=== PATIENT | male | born 1955 | race African-American/Black ===

== ENCOUNTER 2016-12-30 08:40 | Day surgery (SDC) | payer OTHER ==
[2016-12-26 13:45] VITALS: BMI 44.9
[2016-12-30 11:04] LABS: Prothrombin Time 13.8 SEC (12.0-14.7)
[2016-12-30] MEDS ORDERED: Fentanyl 100 MCG/2 ML VIAL ONE (13:07)
[2016-12-30] MEDS ORDERED: Midazolam HCl 2 mg/2 ml Vial ONE ×2 (13:07→13:48)
[2016-12-30] MEDS ORDERED: Bupivacaine PF 0.5% 30 ML VIAL ONE (13:24)
[2016-12-30] MEDS ORDERED: Bacitracin Zinc Ointment 30 gm TUBE ONE (13:24)
[2016-12-30] MEDS ORDERED: Betamet Acet/Betamet Na Ph 30 MG/5 ML VIAL ONE (13:24)
[2016-12-30] MEDS ORDERED: Propofol 500 MG/50 ML VIAL ONE (13:48)
[2016-12-30] MEDS ORDERED: Propofol 200 MG/20 ML VIAL ONE (14:15)
[2016-12-30] MEDS ORDERED: Lidocaine 1% PF 5 ML VIAL ONE (14:15)
[2016-12-30] MEDS ORDERED: Thrombin 5000 UNITS/5 ML VIAL ONE ×3 (14:34→15:40)
[2016-12-30] MEDS ORDERED: Diprivan 20 ML ONE ×2 (15:37→15:38)
[2016-12-30] MEDS ORDERED: Ketorolac Tromethamine 30 MG/ML VIAL ONE (16:50)
--- NOTE | 2016-12-30 17:30 | RAD ---
EXAM: INTRAOPERATIVE FLUOROSCOPY 12/30/16 COMPARISON: None. FINDINGS: Three fluoroscopic views are submitted for interpretation and demonstrate a metallic surgical instru ment at the level of the olecranon, specifically at the level of the olecranon osteophyte. IMPRESSION: Fluoroscopy as above. POS: NARGIS
--- NOTE | 2016-12-31 09:28 | OP ---
DATE OF PROCEDURE: 12/30/2016 PREOPERATIVE DIAGNOSES: 1. Anticoagulation with Coumadin and Lovenox. 2. Large olecranon bursa. PROCEDURES PERFORMED: 1. Radical olecranon bursectomy. 2. Triceps tendon partial repair. 3. Olecranon osteophyte excision. 4. C-arm supervision. SURGEON: Kei Sanders MD. COMPLICATIONS: None. TOURNIQUET TIME: 72 minutes. ESTIMATED BLOOD LOSS: 60 mL. AUGMENTATION AT THE END OF PROCEDURE: We used thrombin-soaked Gelfoam, 4 vials of thrombin, and 4 G elfoams, and placed him in the splint with bulky dressing. INDICATION: The patient with persistent olecranon bursitis, with large osteophyte almost 1 cm long on radiographs. POSTOPERATIVE FINDINGS: A small hole in the triceps tendon approximately 5-6 mm long, which we repa ired with the osteophyte was protruding. DESCRIPTION OF PROCEDURE: After successful general LMA technique, limb was prepped and draped. Juan eout was done appropriately. A zigzag incision was outlined with no incision over the olecranon tip itself. After prepped and draped and appropriate timeout, sterile tourniquet was applied. Limb wa s exsanguinated, tourniquet inflated to 325 mmHg pressure. We then made a zigzag incision carried t hrough skin, subcutaneous tissue the whole way, performed electrocautery on anything that looked lik e it may bleed, especially as we knew the patient had a bleeding diathesis based on anticoagul ation for all the systemic problems. Once we did this, there was a very thick olecranon bursa with a fluid-filled, so it was excised all mass and was approximately 12 cm long and a 4.5 cm wide. Once this was done, we found on the C-arm the osteophyte and we easily saw and made a hole through the t riceps, follow this hole to the osteophyte, excised using a combination of a mallet and osteotome an d a rongeur. At this point, this left a 3 mm wide x 7 mm hole over the triceps, which was repaired primarily using #1 Ethibond suture. Tourniquet was deflated and we obtained hemostasis over a 15 minute using cold normal saline soaked lap sponges followed by pressure followed by cautery. Once we achieved relative hemostasis, we then placed thrombin-soaked Gelfoam throughout the entire wound to include the undersurface of the skin as well as the bone and the triceps surface. We then observed this for 5-6 minutes. There was no b leeding after this, and so we then closed the wound in multiple layers using a 3-0 running Monocryl undyed and a 3-0 nylon interrupted mattress pattern on the skin. Placed a bulky dressing to include ABD, and a long arm splint and the patient left the operating room without evidence of anesthetic o r operative complication.
== END 2016-12-30 18:30 | disposition home or self-care (01) ==
LOC: SDC 08:40
PROVIDERS: ATTEND Orthopaedic Surgery Hand Surgery
PROC: 0MT40ZZ Resection of Left Elbow Bursa and Ligament, Open Approach (ICD-10-PCS; principal; 2016-12-30)
PROC: 0PBL0ZZ Excision of Left Ulna, Open Approach (ICD-10-PCS; principal; 2016-12-30)
DX: M70.22 Olecranon bursitis, left elbow (principal); M19.022 Primary osteoarthritis, left elbow; I10 Essential (primary) hypertension; I25.10 Atherosclerotic heart disease of native coronary artery without angina pectoris; E11.9 Type 2 diabetes mellitus without complications; E78.5 Hyperlipidemia, unspecified; F43.10 Post-traumatic stress disorder, unspecified; G47.33 Obstructive sleep apnea (adult) (pediatric); N52.9 Male erectile dysfunction, unspecified; F32.9 Major depressive disorder, single episode, unspecified; E66.01 Morbid (severe) obesity due to excess calories; Z68.41 Body mass index [BMI] 40.0-44.9, adult; Z88.8 Allergy status to other drugs, medicaments and biological substances; Z79.01 Long term (current) use of anticoagulants; Z79.899 Other long term (current) drug therapy; Z98.84 Bariatric surgery status; Z98.1 Arthrodesis status; Z96.0 Presence of urogenital implants; Z90.49 Acquired absence of other specified parts of digestive tract; Z86.711 Personal history of pulmonary embolism; Z86.73 Personal history of transient ischemic attack (TIA), and cerebral infarction without residual deficits; Z99.89 Dependence on other enabling machines and devices
CPT/HCPCS: 36415; 36416; 76000; 85610; 85730; 88304; 88307; 88311; 96372; J0702; J1885; J2001; J2250; J2704; J3010; S0020

== ENCOUNTER 2017-01-07 14:30 | Inpatient (IN) | payer MEDICARE, OTHER ==
[2017-01-07] MEDS ORDERED: Lidocaine 1% (PF) 30 ML VIAL ONE ×2 (15:07→18:02)
[2017-01-07] MEDS ORDERED: Thrombin 5000 UNITS/5 ML VIAL ONE ×3 (15:07→17:39)
[2017-01-07] MEDS ORDERED: Phytonadione 10 MG/ML AMP SLOW IVP SCH (15:15)
[2017-01-07] MEDS ORDERED: Thrombin 5000 UNITS/5 ML VIAL FS SCH (15:15)
[2017-01-07 15:46] LABS: #Basophils 0.1 thou/uL (0.0-0.2); #Eosinphils 0.2 thou/uL (0.0-0.7); #Lymphocytes 2.8 thou/uL (1.20-3.40); #Monocytes 0.9 thou/uL (0.11-0.59); #Neutrophils 7.1 thou/uL (1.40-6.50); %Basophils 0.9 % (0.0-1.0); %Eosinophils 1.8 % (0.0-10.0); %Lymphocytes 24.8 % (21.0-51.0); %Monocytes 8.3 % (0.0-10.0); Hematocrit 39.9 % (42.0-52.0); Mean Platelet Volume 8.7 fL (7.4-10.4); Red Blood Cell (RBC) Count 4.26 mill/uL (4.70-6.10); White Blood Cell (WBC) Count 11.1 thou/uL (4.8-10.8)
[2017-01-07 15:54] LABS: PTT 56.8 SEC (22.9-36.1); Prothrombin Time 29.4 SEC (12.0-14.7)
[2017-01-07 15:59] LABS: Anion Gap 13 mmol/L (10-20); BUN (Urea Nitrogen) 10 mg/dL (8.4-25.7); Calc. Creatinine Clearance 0 mL/min (70-130); Calcium 9.4 mg/dL (7.8-10.44); Carbon Dioxide 28 mmol/L (22-29); Chloride 103 mmol/L (98-107); Estimated GFR-MDRD Greater than 90
[2017-01-07] MEDS ORDERED: Midazolam HCl 2 mg/2 ml Vial ONE (16:18)
[2017-01-07] MEDS ORDERED: Thrombin 20 THOU.UNITS/20 ML VIAL ONE (17:38)
[2017-01-07] MEDS ORDERED: Lidocaine 1% w/Epinephrine 1:200K 30 ML VIAL ONE (17:57)
[2017-01-07] MEDS ORDERED: Bacitracin Zinc Ointment 30 gm TUBE ONE (17:57)
[2017-01-07] MEDS ORDERED: Bupivacaine PF 0.5% 30 ML VIAL ONE (17:57)
[2017-01-07] MEDS ORDERED: Fentanyl 100 MCG/2 ML VIAL ONE ×4 (19:06→20:33)
[2017-01-07] MEDS ORDERED: Succinylcholine Chloride 20 MG/ML 10 ml SYRINGE FS ONE (19:07)
[2017-01-07] MEDS ORDERED: Lidocaine 1% PF 5 ML VIAL ONE (19:07)
[2017-01-07] MEDS ORDERED: Propofol 200 MG/20 ML VIAL ONE ×2 (19:07)
[2017-01-07] MEDS ORDERED: Promethazine HCl 25 MG/ML VIAL SLOW IVP PRN (19:58)
[2017-01-07] MEDS ORDERED: Ondansetron HCl/PF 4 MG/2 ML Vial IVP PRN (19:58)
[2017-01-07] MEDS ORDERED: Promethazine HCl 25 MG/ML VIAL IM PRN ×2 (19:58→20:36)
[2017-01-07] MEDS ORDERED: HYDROcodone/Acetaminophen 7.5/325 mg Tablet PO PRN (20:45)
[2017-01-07] MEDS ORDERED: HYDROmorphone 2 MG/ML VIAL SLOW IVP PRN (21:00)
[2017-01-07] MEDS ORDERED: Non-Formulary Medication 1 EACH PO PRN (21:00)
[2017-01-07 21:56] VITALS: BMI 48.7
[2017-01-07] MEDS: HYDROcodone/Acetaminophen 7.5/325 mg Tablet PO PRN (22:18)
[2017-01-08] MEDS: HYDROcodone/Acetaminophen 7.5/325 mg Tablet PO PRN ×4 (04:16→22:33)
[2017-01-08] MEDS: PROVENTIL INHALER 6.7 G (200 INHALATIONS) INH SCH ×2 (06:57→18:17)
--- NOTE | 2017-01-08 07:04 | OP ---
DATE OF SURGERY: 01/07/2017 PREOPERATIVE DIAGNOSIS: Hematoma, left elbow. POSTOPERATIVE DIAGNOSIS: Hematoma, left elbow. FINDIN mL clotted blood without any visualized arterial bleeder. PROCEDURE PERFORMED: 1. Evacuation of hematoma. 2. Application of thrombin-soaked Gelfoam (over a special angicoagulation dressing) with wound pack ing. COMPLICATIONS: None. ESTIMATED BLOOD LOSS: All of the hematoma which was approximately 200 mL clot. Wound edge necrosis seen over an area approximately 1 cm x 4 mm at one of the zigzag Z-plasty edges of the wound over t he central olecranon. No gross separation at the triceps, local and repair. INDICATIONS: The patient is now approximately 9 days after removal of an olecranon bursa with a gena nful osteophyte in the triceps. Had local triceps repair, but now reports 1.5 days of increa sed wound size, warmth, pain and decrease in elbow ability. In the clinic today, we tried to aspira te what was obviously a hematoma, and the patient went back on full coumadization 3 days prior. Cou ld not evacuate, felt like it was clotting at the end of the needle, and therefore felt open evacuat ion was indicated. DESCRIPTION OF PROCEDURE: After successful general endotracheal by [place] Anesthesia, limb was pr epped and draped. The patient had the timeout done. No tourniquet was used. We removed the suture s with scissors, and then immediately opened the subcutaneous skin and the clot began to escape. We debrided some from the corners, found a little wound necrosis over the central portion of zigzag in cision over the olecranon tip, which was 1 cm x 5 mm with a tenotomy scissor. Then, we irrigated the area first with 1500 mL of normal saline and Pulsavac pressure to look for bl eeders and found only localized skin bleeding, but no true arterial even small venous bleeder. Then , we continued to irrigate with an additional 2500 mL normal saline and Pulsavac pressure, use of mo ist hematoma over the entire wound area to include the skin and exposed tendon and fat for 7 minutes . Then, we had 7 minutes of thrombin-soaked Gelfoam and then cover the entire area and we watched n ow 15 minutes after the initial compression, there was no bleeding. We then placed normal saline so aked 4 x 4s over the thrombin-soaked Gelfoam, this covered the wound and the underlying subcutaneous skin from the inside. Then, we placed dry, 4 x 4s, ABDs, Kerlix is then a splint. The patient lef t the operating room without complication.
[2017-01-08 08:36] LABS: #Basophils 0.1 thou/uL (0.0-0.2); #Eosinphils 0.4 thou/uL (0.0-0.7); #Lymphocytes 2.4 thou/uL (1.20-3.40); #Neutrophils 6.9 thou/uL (1.40-6.50); %Basophils 0.5 % (0.0-1.0); %Eosinophils 3.6 % (0.0-10.0); %Lymphocytes 22.2 % (21.0-51.0); Hematocrit 34.6 % (42.0-52.0); Mean Platelet Volume 8.5 fL (7.4-10.4); Red Blood Cell (RBC) Count 3.69 mill/uL (4.70-6.10); White Blood Cell (WBC) Count 10.7 thou/uL (4.8-10.8)
[2017-01-08 08:50] LABS: PTT 41.5 SEC (22.9-36.1); Prothrombin Time 17.7 SEC (12.0-14.7)
[2017-01-08] MEDS: Vancomycin HCl 1 GM in Premix Bag 1 BAG IVPB SCH ×2 (08:51→20:28)
[2017-01-08] MEDS ORDERED: Dextrose 5% in Water 1,000 ML IV PRN (16:43)
[2017-01-08] MEDS ORDERED: HumaLOG 300 UNITS/3 ML VIAL SC PRN (16:43)
[2017-01-08] MEDS ORDERED: Dextrose 50% Abboject 50 ML SYRINGE SLOW IVP PRN (16:43)
[2017-01-08] MEDS: Enoxaparin Sodium 40 MG/0.4 ML SYRINGE SC SCH (20:29)
[2017-01-08] MEDS: Atorvastatin Calcium 10 MG TAB PO SCH (20:29)
--- NOTE | 2017-01-09 01:06 | CON ---
DATE OF CONSULTATION: 01/08/2017 DATE OF ADMISSION: 01/07/2017 CHIEF COMPLAINT: Left elbow swelling. REASON FOR CONSULTATION: Anticoagulation management. HISTORY OF PRESENT ILLNESS: Patient was referred to Dr. Sanders for recurrent left olecranon bursitis. He subsequently had his bursa removed surgically. In the postoperative period, he rebled into the surgical site attempts at aspiration apparently failed outpatient and patient was taken back to the OR yesterday for clean out wounds so far has been left open to secondary tension at this point in time, dressed, packed with splint in place currently. No reports of bleeding through splint at this point in time. Patient has been maintained on Coumadin until this rebleeding episode, where he was given vitamin K to counteract the effects and prevent further bleeding in the postoperative period. Patient has been on Coumadin for over a year for hypercoagulable state. He has suffered pulmonary embolism in the past and failed aspirin therapy on an outpatient basis. Patient reports no shortness of breath currently, pain is well controlled on current medications. He denies any cough or congestion. Denies any constipation or diarrhea. Denies any confusion or headache. REVIEW OF PAST FAMILY, MEDICAL, SOCIAL SURGICAL HISTORY: Includes medical history of type 2 diabetes, morbid obesity, status post gastric bypass, PTSD, chronic pain, pulmonary embolism, osteoarthritis, obstructive sleep apnea, hyperlipidemia, hypertension, erectile dysfunction, coagulopathy, gastroesophageal reflux disease, prior tobacco user. Surgery include penile implant, bilateral pins and rods in feet, gastric bypass in 01/2015. Patient denies being current smoker, . Denies recreational drug use or alcohol use. He has been found to be cocaine positive on an outpatient basis with UDS on chronic pain management, possible source of being patient's weight loss supplements, he has been getting from multiple sources. I do not believe he has an active cocaine user at this point in time. VITAL SIGNS: This a.m., temperature of 98.7, pulse of 77, respiratory rate of 16, oxygen saturation of 95% on room air, blood pressure 121/80. LABORATORY RESULTS: White blood cell count of 10.7, hemoglobin of 11.0, MCV of 93.8, platelet count of 249. INR dropped from 2.7-1.4 following initiation of vitamin K. Sodium of 139, potassium of 4.5, chloride of 103, CO2 of 28, BUN of 10, creatinine of 0.89, glucose of 104, calcium of 9.4. Preliminary culture report of drainage from left elbow many red blood cells, white blood cells, no organisms seen, no growth at 12 hours. PHYSICAL EXAMINATION: GENERAL: Patient is alert and oriented, in no acute distress. HEENT: Head is normocephalic, atraumatic. Extraocular movements are intact. Sclerae clear. NECK: Supple, nontender. HEART: Regular rate and rhythm. No murmurs are auscultated. ABDOMEN: Patient is obese with largely central obesity. Abdomen is protuberant and nontender. Positive bowel sounds throughout. EXTREMITIES: Lower extremities without cyanosis or edema. NEUROLOGIC: Patient is alert and oriented x3, no focal deficits. Speech is normal. Left upper extremity propped up on pillow with splint in place. Long arm, no apparent bleeding through bandages at this point in time. Patient able to move fingers on left upper extremity. ASSESSMENT AND PLAN: Left elbow hematoma, status post surgical evacuation, hypercoagulable state, diabetes on insulin, hypertension. if surgery is planned for either drain placement or wound VAC or reclosure regarding wound, regarding hypercoagulable state. Recommend prophylactic Lovenox and immediate postoperative period. Discussed with patient, initiation on Eliquis on an outpatient basis rather than Coumadin. He verbalized understanding regarding benefits of this and dislikes Lovenox shots does not want to rebridge with Lovenox to Coumadin or continue monitoring or eating specific amounts of drinks. We would recommend first dose of Eliquis and prior to patient's discharge. We will send in prescription to patient's pharmacy for outpatient continuation. If further surgery needed may hold prophylaxis Lovenox as desired first dose this evening. Diabetes type 2 on insulin, initiating sliding scale insulin. No reports of hyperglycemia or hypoglycemia sliding scale checks on q.a.c. and at bedtime. R established patient's home medication of lisinopril. We will continue to monitor while inpatient. Patient is currently stable. We will continue to follow. DIANNED
--- NOTE | 2017-01-09 06:32 | PRG ---
DATE OF SERVICE: 01/08/2017 SUBJECTIVE: Patient reports that he was evaluated by Medicine and Hematology and they decided to us e a known anticoagulant agent other than Coumadin on the patient, which he reports is Xarelto. He t amauri reports that pain is greatly decreased. PHYSICAL EXAMINATION: Dressing intact, splint intact. Digit extension, abduction, adduction, cross over, thumb extension, wrist flexion, and extension intact. No stretch pain. LABORATORY DATA: The white blood cell count is down to 10,600 after being almost 12,000 on admissio n. ASSESSMENT AND RECOMMENDATIONS: Open wound secondary to debridement, packed with anticoagulant and normal saline soaked gauze. Recommend the patient to have debridement of wound tomorrow and possibl e closure. I discussed with the patient that I thought he would have to, in all honesty, to achieve a better closure without bleeding, remain in hospital for 3 to 4 days, have the wound closed, moreo devi drained with no gross infection. Leave drain in for 2 days, go back on anticoagulation and make sure no hematoma recur soon. He agrees to this and would have a note as necessary to give to his f carolyny. Concerning the medical excuse, I will be willing to cooperate. He will be made n.p.o. for s urgery tomorrow. Counseled all risks and agrees to proceed.
[2017-01-09 06:40] LABS: Prothrombin Time 15.3 SEC (12.0-14.7)
[2017-01-09] MEDS: PROVENTIL INHALER 6.7 G (200 INHALATIONS) INH SCH ×2 (07:12→18:14)
[2017-01-09 08:48] LABS: Vancomycin, Trough 9.5 ug/mL
[2017-01-09] MEDS: Lisinopril 20 MG TAB PO SCH ×3 (09:28→14:57)
[2017-01-09] MEDS: Sodium Chloride 0.9% 1,000 ML IV SCH ×2 (09:29→18:48)
[2017-01-09] MEDS: Vancomycin HCl 1 GM in Premix Bag 1 BAG IVPB SCH ×2 (09:29→21:04)
[2017-01-09] MEDS ORDERED: Thrombin 5000 UNITS/5 ML VIAL ONE (10:32)
[2017-01-09] MEDS ORDERED: Sodium Chloride 0.9% 30 ML ONE (10:33)
[2017-01-09] MEDS ORDERED: Fentanyl 100 MCG/2 ML VIAL ONE ×2 (10:44→12:38)
[2017-01-09] MEDS ORDERED: Midazolam HCl 2 mg/2 ml Vial ONE (10:44)
[2017-01-09] MEDS ORDERED: Ondansetron HCl/PF 4 MG/2 ML Vial ONE (11:13)
[2017-01-09] MEDS ORDERED: Ketorolac Tromethamine 30 MG/ML VIAL ONE (11:13)
[2017-01-09] MEDS ORDERED: Propofol 200 MG/20 ML VIAL ONE (11:13)
[2017-01-09] MEDS ORDERED: Lidocaine 2% PF 10 ML AMP (For Epidural Use) ONE (11:13)
[2017-01-09] MEDS ORDERED: Bacitracin Zinc Ointment 30 gm TUBE ONE (12:06)
[2017-01-09] MEDS ORDERED: HYDROmorphone 2 MG/ML VIAL SLOW IVP PRN (12:39)
[2017-01-09] MEDS ORDERED: Promethazine HCl 25 MG/ML VIAL SLOW IVP PRN (12:39)
[2017-01-09] MEDS ORDERED: Promethazine HCl 25 MG/ML VIAL IM PRN (12:39)
[2017-01-09] MEDS ORDERED: Ondansetron HCl/PF 4 MG/2 ML Vial IVP PRN (12:39)
[2017-01-09] MEDS: HYDROcodone/Acetaminophen 7.5/325 mg Tablet PO PRN ×2 (14:43→21:03)
[2017-01-09] MEDS: Atorvastatin Calcium 10 MG TAB PO SCH (21:02)
[2017-01-09] MEDS: Enoxaparin Sodium 40 MG/0.4 ML SYRINGE SC SCH (21:04)
[2017-01-10] MEDS: HYDROcodone/Acetaminophen 7.5/325 mg Tablet PO PRN ×4 (03:38→22:33)
[2017-01-10] MEDS: Sodium Chloride 0.9% 1,000 ML IV SCH ×2 (05:26→14:28)
[2017-01-10 05:49] LABS: Prothrombin Time 15.7 SEC (12.0-14.7)
--- NOTE | 2017-01-10 08:12 | PRG ---
DATE, OF SERVICE: 01/09/2017 HISTORY OF PRESENT ILLNESS: The patient is awaiting surgery this a.m. for washout and potential wound closure. The patient received a drain placement to wound area. Per reports of patient, Dr. Sanders is planning on rechecking the wound bed on Thursday with possible final closure versus closure with wound VAC or drain to send home with. The patient has been stable on prophylactic Lovenox with no bleeding episodes occurring. The patient denies any shortness of breath or chest pain, being off Coumadin at this point in time, has no complaints. Reports bowels and urine are moving well. PHYSICAL EXAMINATION: VITAL SIGNS: Temperature this morning 98.1, pulse of 70, respiratory rate 18, oxygen saturation 97% on room air, blood pressure 131/79. GENERAL: The patient is alert and oriented, in no acute distress. HEENT: Head is normocephalic, atraumatic. Extraocular movements are intact. Sclerae are clear. LUNGS: Clear to auscultation bilaterally. No rubs or wheezes. CARDIOVASCULAR: Heart has regular rate and rhythm. No murmurs auscultated. Diminished breath sounds bilaterally secondary to body habitus. ABDOMEN: Soft, nontender, positive bowel sounds throughout. EXTREMITIES: Lower extremities without cyanosis or edema. Left upper extremity still was in splint, dressing intact overlying postoperative. The patient had drain with serosanguineous output. LABORATORY DATA: INR has fallen to 1.2. last 24 hour glucose is 101-132 range. The patient remains on vancomycin with trough this a.m. at 9.5. ASSESSMENT AND PLAN: 1. Left elbow wound, management per Dr. Sanders. We will sign off to Dr. Wilkins to follow over weekend. 2. Diabetes type 2. Glucose is followed with sliding scale insulin and Accu- Cheks, currently stable. 3. Hypercoagulability state, recommending prophylactic Lovenox until which point in time Surgery has cleared him for anticoagulation, return to not Coumadin, but rather Eliquis, prescription had already been sent home and instructed the patient to have spouse fruit picker medication. Recommend patient receive first dose Eliquis on the day of discharge and initiate home medication continuation at home. Follow up in clinic in 1 week to 10 days. We will continue to follow while the patient is inpatient. KRISTEN
[2017-01-10] MEDS: Lisinopril 20 MG TAB PO SCH (08:35)
[2017-01-10] MEDS: Vancomycin HCl 1 GM in Premix Bag 1 BAG IVPB SCH ×2 (08:38→20:36)
[2017-01-10] MEDS: PROVENTIL INHALER 6.7 G (200 INHALATIONS) INH SCH ×2 (08:41→18:10)
--- NOTE | 2017-01-10 08:44 | OP ---
DATE OF PROCEDURE: 01/09/2017 PREOPERATIVE DIAGNOSES: 1. Left olecranon elbow region 25 cm open wound with no hematoma. 2. Still some friable tissue, but no excessive bleeding. 3. Minimal wound edge necrosis only 1 mm x 3 mm area. PROCEDURE PERFORMED: 1. Debridement of wound edge: 24549, depth which included dermis, epidermis, some subcutaneous fat , but no fascia. The debridement also was excisional. The debridement used tenotomy scissors, Beav er blade, 11 blade knife, and Bovie, and there were no complications or infections. 2. Complex closure of 25 cm wound, left elbow. COMPLICATIONS: None. TOURNIQUET TIME: Zero. DRAINS: Yes, a small Hemovac drain. OTHER SUBSTANCES USES: 1. FloSeal. 2. Thrombin over Gelfoam. INDICATION: The patient needed staged wound management after having fully anticoagulated related ol ecranon postop bursectomy, hematoma evacuated 48 hours prior. Normal white blood cell count one day prior to procedure. DESCRIPTION OF PROCEDURE: After successful anesthesia by [place] Anesthesia listed above, limb was prepped and draped. The entire shoulder was draped free to include the axilla and the arm. No uvaldo rniquet was used. We removed the dressing, inspected the wound, performed a minimal wound edge necr otic region debridement and resection as described in \\\\"debridement\\\\" above. Next, the patient had the wound irrigated with 3 liters of normal saline and Pulsavac pressure. We use a moist lap sponge, obtained hemostasis. After this, we placed FloSeal and then thrombin in the wound. Brought a one-eighth inch Hemovac drain out superiorly and radially with no complication. Then, the patient had the wound closed in 2 layers to reapproximate the area where we had debrided x 2, and the deep dermis was closed with a running 3-0 Monocryl, 3-0 nylon was used to close the skin in an interrupted pattern. Simple bulky dressing was applied and a long arm splint. The drain was intact, and the patient left the operating room without complication.
[2017-01-10] MEDS ORDERED: Docusate 100 MG CAP PO SCH (10:30)
--- NOTE | 2017-01-10 12:00 | PRG ---
DATE OF SERVICE: 01/10/2017 SUBJECTIVE: The patient is sitting up in bed comfortably. Denies pain at this time. He is getting pain medications. He has also had a bowel movement this morning helped with a stool softener. OBJECTIVE: VITAL SIGNS: Temperature 98, pulse 80, blood pressure 139/91, and respirations 12. GENERAL: Alert and oriented x3, in no acute distress. HEENT: Normocephalic. Pupils are equally round and react to light. Extraocular muscles intact. HEART: Regular rate and rhythm. No murmurs. LUNGS: Clear to auscultation bilaterally. ABDOMEN: Soft, nontender, and nondistended. Bowel sounds heard throughout. EXTREMITIES: No cyanosis, clubbing or edema in the lower extremities. Left elbow and forearm wrapp ed in a bandage. NEUROLOGIC: Nonfocal exam. LABORATORY DATA: Accu-Cheks today 120 and 115. ASSESSMENT AND PLAN: 1. Left elbow wound status post debridement, Dr. Sanders continues to manage. Per the patient, hi s plan is to review tomorrow on 01/11/[address] a wound VAC. 2. Type 2 diabetes. Glucose is stable with sliding scale insulin. 3. Hypercoagulable state. He was on Coumadin previously. While in the hospital, he is using proph ylactic Lovenox. Prior to discharge, he will get at least one dose of Eliquis and continue at home.
[2017-01-10] MEDS: Cepastat Lozenges 1 LOZ PO PRN ×2 (12:17→18:29)
[2017-01-10] MEDS: Enoxaparin Sodium 40 MG/0.4 ML SYRINGE SC SCH (20:28)
[2017-01-10] MEDS: Docusate 100 MG CAP PO SCH (20:28)
[2017-01-10] MEDS: Atorvastatin Calcium 10 MG TAB PO SCH (20:29)
[2017-01-11] MEDS: Sodium Chloride 0.9% 1,000 ML IV SCH (00:19)
[2017-01-11] MEDS: HYDROcodone/Acetaminophen 7.5/325 mg Tablet PO PRN ×2 (05:12→10:56)
[2017-01-11 06:04] LABS: Prothrombin Time 14.5 SEC (12.0-14.7)
[2017-01-11] MEDS: Docusate 100 MG CAP PO SCH (07:53)
[2017-01-11] MEDS: Lisinopril 20 MG TAB PO SCH (07:53)
[2017-01-11] MEDS: Vancomycin HCl 1 GM in Premix Bag 1 BAG IVPB SCH (07:54)
[2017-01-11 07:56] VITALS: BP 134/90
[2017-01-11] MEDS: PROVENTIL INHALER 6.7 G (200 INHALATIONS) INH SCH (08:19)
[2017-01-11 08:20] VITALS: TEMP 98.1
[2017-01-11] MEDS ORDERED: Apixaban 5 MG TAB PO SCH ×2 (11:00→21:00)
--- NOTE | 2017-01-11 11:45 | PRG ---
DATE OF SERVICE: 01/11/2017 SUBJECTIVE: The patient denies pain at this time. His left elbow and arm are wrapped and placed in the sling. Dr. Sanders has cleared him for discharge today. OBJECTIVE: VITAL SIGNS: Temperature 98.1, pulse 66, blood pressure 134/90, respirations 12, oxygen saturation 96% on room air. GENERAL: Alert and oriented x3, in no acute distress. HEENT: Normocephalic. Pupils equally round and react to light. Extraocular muscles are intact. HEART: Regular rate and rhythm, no murmurs. LUNGS: Clear to auscultation bilaterally. ABDOMEN: Soft, nontender, and nondistended. Bowel sounds heard throughout. EXTREMITIES: No cyanosis, clubbing or edema in the bilateral lower extremities. Left elbow and for earm wrapped in a bandage. NEUROLOGIC: Nonfocal exam. ASSESSMENT AND PLAN: 1. Left elbow wound, status post debridement. Dr. Sanders has reevaluated the wounds today and leal s approves discharge for today. 2. Type 2 diabetes, stable. 3. Hypercoagulable state. We will provide a dose of Eliquis prior to discharge and stop the prophy lactic Lovenox. He is to continue with Eliquis twice a day and follow up with Dr. Waldron in 1 to 2 weeks.
--- NOTE | 2017-01-11 19:21 | DIS ---
DATE OF ADMISSION: 01/07/2017 DATE OF DISCHARGE: 01/11/2017 ADMITTING PHYSICIAN: Kei Sanders MD DISCHARGE PHYSICIAN: Kei Sanders MD PREOPERATIVE DIAGNOSES: 1. Hematoma, left elbow olecranon region, postoperative. 2. Over anticoagulation with Coumadin and Lovenox. DISCHARGE DIAGNOSES: 1. Hematoma, left elbow olecranon region, postoperative. 2. Over anticoagulation with Coumadin and Lovenox, with no gross evidence of infection, clinically overt early culture results. HOSPITAL COURSE: The patient was admitted after having olecranon bursectomy, radically removed, and a spike change in the anticoagulant dosing and regimen, he developed a hematoma which could not be aspirated completely in the office. Therefore, he was admitted and on the date of admission, underw ent urgent evacuation of hematoma, irrigation and debridement of the wound. Remained open for appro ximately 2 days with a packing, thrombin-soaked Gelfoam and he was changed from his Lovenox, Coumadi n combination to Xarelto by the production support consultant here in the hospital. Because he had his white blood tanna l count normalized, his wound appears stable, returned to operating room approximately 6 hours after initial procedure, had the packing removed, the initial thrombin Gelfoam removed and then underwent wound closure with slight debridement using at this time Gelfoam thrombin as well as surfactants to help decrease the bleeding. He had no evidence of an actual focused arterial bleed or venous bleed at the end of the procedure. He tolerated the last procedure well, had a drain in, which had a total of 50 mL out over 2 days wit h only a 5 mL out the last 8 hours before it was removed. The patient then had dressing change on t he date of discharge. The wound was flat with no fluctuance or erythema. No effusion was seen and no hematoma. DISCHARGE INSTRUCTIONS: He was preparing for discharge with the final discharge instructions: 1. Diet: Regular. 2. Continue the home meds from before except for the addition of Xarelto and I would place him on B actrim for a prophylactic antibiotic for 8 days and then followed that with [place] 7.5 mg for pain q. 6-8 hours p.r.n. He will call the clinic today after discharge, make an appointment in 1 week from today approximately.
[2017-01-11] MEDS ORDERED: Enoxaparin Sodium 40 MG/0.4 ML SYRINGE SC SCH (21:00)
== END 2017-01-11 11:12 | disposition home or self-care (01) | DRG 902 ==
LOC: SDC 14:30 → SURG A 19:40
PROVIDERS: ADMIT Orthopaedic Surgery Hand Surgery; ATTEND Orthopaedic Surgery Hand Surgery
PROC: 0JBH0ZZ Excision of Left Lower Arm Subcutaneous Tissue and Fascia, Open Approach (ICD-10-PCS; principal; 2017-01-07)
PROC: 0J9H00Z Drainage of Left Lower Arm Subcutaneous Tissue and Fascia with Drainage Device, Open Approach (ICD-10-PCS; 2017-01-07)
PROC: 0JCH0ZZ Extirpation of Matter from Left Lower Arm Subcutaneous Tissue and Fascia, Open Approach (ICD-10-PCS; 2017-01-07)
PROC: 30233K1 Transfusion of Nonautologous Frozen Plasma into Peripheral Vein, Percutaneous Approach (ICD-10-PCS; 2017-01-07)
PROC: 0JBH0ZZ Excision of Left Lower Arm Subcutaneous Tissue and Fascia, Open Approach (ICD-10-PCS; 2017-01-09)
DX: L76.32 Postprocedural hematoma of skin and subcutaneous tissue following other procedure (principal); Z68.42 Body mass index [BMI] 45.0-49.9, adult; I10 Essential (primary) hypertension; E11.9 Type 2 diabetes mellitus without complications; Z79.01 Long term (current) use of anticoagulants; T45.515A Adverse effect of anticoagulants, initial encounter; E66.01 Morbid (severe) obesity due to excess calories; Z98.84 Bariatric surgery status; F43.10 Post-traumatic stress disorder, unspecified; Z86.711 Personal history of pulmonary embolism; G47.33 Obstructive sleep apnea (adult) (pediatric); E78.5 Hyperlipidemia, unspecified; N52.9 Male erectile dysfunction, unspecified; K21.9 Gastro-esophageal reflux disease without esophagitis; Z87.891 Personal history of nicotine dependence; G89.29 Other chronic pain; Z79.4 Long term (current) use of insulin; Z86.73 Personal history of transient ischemic attack (TIA), and cerebral infarction without residual deficits; I25.10 Atherosclerotic heart disease of native coronary artery without angina pectoris; F32.9 Major depressive disorder, single episode, unspecified; M19.022 Primary osteoarthritis, left elbow
CPT/HCPCS: 36415; 36416; 36430; 80048; 80202; 85025; 85610; 85730; 86850; 86900; 86901; 87070; 87102; 87116; 87205; 87206; A4216; G8978-GP-CH; G8979-GP-CH; G8980-GP-CH; J1170; J1650; J1885; J2001; J2175; J2250; J2270; J2405; J2550; J2704; J3010; J3370; J3430; J3490; J7050; P9059; S0020